=== PATIENT | female | born 1940 | race Caucasian/White ===

== ENCOUNTER 2021-04-01 05:47 | Day surgery (SDC) | payer MEDICARE ==
[2021-03-28 11:49] VITALS: BMI 19.4
[2021-04-01] MEDS ORDERED: ceFAZolin 1 GM in SODIUM CHLORIDE 0.9% 250 ML IRRIGATION PRN (05:53)
[2021-04-01] MEDS ORDERED: SODIUM CHLORIDE 0.9% 1,000 ML IV SCH ×2 (05:53)
[2021-04-01] MEDS ORDERED: SODIUM CHLORIDE 0.9% 1,000 ML IV ONE (06:10)
[2021-04-01 06:39] VITALS: RESP 16; TEMP 97.8
[2021-04-01 06:45] LABS: Basophils # (A) 0.1 k/uL (0-0.2); Basophils % (A) 1 %; Eosinophils # (A) 0.1 k/uL (0-0.7); Eosinophils % (A) 2 %; HGB 11.7 gm/dL (11.4-16.0); Lymphocytes % (A) 46 %; MCH 31.6 pg (25.0-35.0); MCHC 33.6 g/dL (31.0-37.0); MCV 94.1 fL (80.0-100.0); Mean Platelet Volume 7.3; Monocytes # (A) 0.3 k/uL (0-1.0); Monocytes % (A) 7 %; Neutrophils # (A) 1.7 k/uL (1.3-7.7); Neutrophils % (A) 40 %; Platelet Count 298 k/uL (150-450); RBC 3.72 m/uL (3.80-5.40); RDW 15.3 % (11.5-15.5); WBC 4.3 k/uL (3.8-10.6)
[2021-04-01 06:52] LABS: Prothrombin Time 19.3 sec (9.0-12.0)
[2021-04-01 06:57] LABS: African American GFR (CKD) >90 (>60 ml/min/1.73 sqM); Blood Urea Nitrogen 11 mg/dL (7-17); Calcium 9.2 mg/dL (8.4-10.2); Carbon Dioxide 26 mmol/L (22-30); Glucose 93 mg/dL (74-99); Non-African American GFR(CKD) 84 (>60 ml/min/1.73 sqM)
[2021-04-01 07:05] LABS: Anion Gap 8 mmol/L; Chloride 95 mmol/L (98-107); Potassium 4.4 mmol/L (3.5-5.1); Sodium 129 mmol/L (137-145)
[2021-04-01] MEDS ORDERED: LIDOCAINE 1% INJ 10MG/ML (20 ML MDV) ONE (08:14)
[2021-04-01] MEDS ORDERED: PROPOFOL 10 MG/ML 20 ML VIAL IV ONE (09:05)
[2021-04-01] MEDS ORDERED: MIDAZOLAM 2 MG/2 ML VIAL ONE (09:05)
[2021-04-01] MEDS ORDERED: fentaNYL (PF) 50 MCG/ML 2 ML AMP ONE (09:05)
[2021-04-01] MEDS ORDERED: IOPAMIDOL-370 50ML BTL INJ ONE (09:36)
[2021-04-01] MEDS ORDERED: LIDOCAINE 1% INJ 10MG/ML (20 ML MDV) SQ ONE ×2 (10:08→11:02)
[2021-04-01] MEDS ORDERED: VANCOMYCIN 1,000 MG in SODIUM CHLORIDE 0.9% 250 ML IVPB STA (10:45)
[2021-04-01] MEDS ORDERED: ACETAMINOPHEN TAB 325 MG TAB PO PRN (12:49)
[2021-04-01] MEDS ORDERED: ACETAMINOPHEN IV (For NPO) 1,000 MG in EMPTY BAG 1 BAG IVPB ONE (12:49)
--- NOTE | 2021-04-01 13:03 | P.EPPROC ---
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 Access was obtained at 2 sites at the level of the second rib successfully The sheath was placed for the LV lead However thereafter the guidewire would not pass down the SVC into the artery despite multiple attempts New RV lead not implanted Patient's RV pacing thresholds are elevated Very subtle bend in the RV lead noted in the subclavian area with the clavicle Patient had an anterior lateral vein and anterior vein The anterior lateral vein was tortuous and diminutive and the guidewire and keep dislodging as the vein was being subselected Therefore this vein was not selected for LV pacing The anterior vein was selected for LV pacing Access is obtained using a subselected sheath to address the tortuosity and this vein The LV lead was placed successfully In the proximal poles diaphragmatic stim ablation was noted In distal pole 1 and 2 there was no diaphragmatic stim ablation Excellent thresholds were noted Initially a Metronic screw-in lead was placed Subsequently this was removed and a [employer] medical researcher was placed This lead was successfully implanted more distally for greater stability and avoidance of diaphragmatic stimulation
--- NOTE | 2021-04-01 13:04 | P.EPPROC ---
- EP Procedure Note Electrophysiology Procedure Note: Successful biventricular pacemaker implanted with a new LV lead in the anterior vein LV only pacing programmed with a backup RV pacing Patient's left ventricular ejection fraction 45% She has been pacing around 70% times with her dual chamber pacemaker Dual-chamber pacemaker was at [facility] for normal battery depletion after 8 years
--- NOTE | 2021-04-01 14:24 | XR ---
EXAMINATION TYPE: XR chest 1V portable DATE OF EXAM: 04/01/2021 COMPARISON: Chest x-ray 01/28/2018 HISTORY: Lead placement check TECHNIQUE: Single frontal view of the chest is obtained. FINDINGS: There is been interval placement of a lead coursing along the expected coronary sinus dist ribution. Right atrial and ventricular leads are again noted. Heart has become enlarged. There is kacy e blunting of the costophrenic angles not seen on prior exam. Generators present in the left pectoral region, there are overlying leads. Patient is post median sternotomy. There is no evident pneumothor ax. Interstitium is increased. IMPRESSION: Interval generator change, placement of coronary sinus lead. Correlate for pulmonary ana ous hypertension and interstitial edema, may be small pleural effusions.
[2021-04-01 16:21] VITALS: BP 155/75; PULSE 64
--- NOTE | 2021-04-01 16:49 | P.EPPROC ---
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
--- NOTE | 2021-04-01 16:55 | P.PRLE ---
RE: Maria Alejandra Gates Dear Jad Bess underwent an upgrade to a biventricular pacemaker successfully. She has an ejection fraction 45% in the setting of an RV pacing percentage of almost 70%. He device was at [facility] A biventricular pacemaker with a new LV lead was successfully implanted Hopefully this is also in improvement in the LV function She will continue to see you and Dr. Ayala as before Thank you for entrusting me with the care of the patient Warm regards Sincerely Kelton Hines
--- NOTE | 2021-04-01 17:28 | CE ---
CARDIAC ELECTROPHYSIOLOGY REPORT Maria Alejandra Gates is an 81-year-old female who has a dual-chamber pacemaker which is at [facility]. She paces about 70% of the time in the right ventricle. Her ejection fraction is 45%. She was brought in for a generator change along with an upgrade to an LV lead for biventricular pacing. The patient was brought to the EP lab in a fasting state. Written informed consent was obtained prior to the procedure. The left shoulder area was prepped and draped as per protocol. Lidocaine 1% was used for local anesthesia. A 4 cm incision was made directly over the previous surgical site and carried down to the level of the generator. The generator was explanted. A partial capsulectomy was performed. Axillary vein access was obtained at two places at the level of the second rib. During the procedure we noticed that the RV thresholds were elevated and there was a very subtle kink in the RV lead under the clavicle. Thresholds were around 3.25 V at 0.5 millisecond. However, at the end of the procedure when we placed the generator back, the thresholds were actually back to normal. Impedance was in the mid 300s and stable. The LV sheath was placed. The coronary sinus catheter was placed in the coronary sinus. Coronary sinus venogram was performed and the anterior vein and a high anterior lateral vein were found. The tortuosity of the veins was noted. Both were accessed and tested. However, the anterolateral vein did not seem stable for lead positioning and even the wire would repeatedly pull out with the slightest forward pressure. Finally the anterior vein was chosen. In the proximal portions, diaphragmatic stimulation was noted, but in the distal portions the thresholds were excellent and there was no diaphragm stim. However, on account of the tortuosity, the Medtronic screw-in lead did not pass distally enough, and therefore a [employer] clinical trial leader was used instead. This vein had to be subselected similar to the anterolateral vein using a subselecting sheath, and then Advantage wire was placed in these veins and then the veins were cannulated. The LV lead used was a [employer] model #1458 Q, 75 cm in length. Pacing threshold 1.25 V at 0.4 millisecond, pacing impedance 703 ohms. At the end of the procedure, the P-waves were .1 mV, pacing impedance 323 ohms, pacing threshold 1.25 V at 0.4 milliseconds. The chronic RV lead showed an R-waves of 4.6 mV, pacing impedance of 380 ohms, pacing threshold 1.5 V at 0.4 millisecond. The new generator implanted was Medtronic Maya Quad, CRTP model number W4TR02, serial number [id number]. The leads and the generator were then placed in the subfascial pocket and the wound was closed in 3 layers and dressed per protocol. The generator was secured to the underlying muscle. The second access site was oversewn to prevent backbleeding. No further leads could be placed, since the SVC innominate junction was completely occluded by the leads. The patient tolerated the procedure well without any acute complications. He received IV antibiotics perioperatively. CHASTITY / VENKAT: [id number] /
[2021-04-01] MEDS ORDERED: POTASSIUM CHLORIDE ER 20 MEQ TAB.ER PO SCH (17:30)
[2021-04-01] MEDS ORDERED: METOPROLOL TARTRATE 50 MG TAB PO SCH (21:00)
[2021-04-01] MEDS ORDERED: NON FORMULARY DRUG (Simvastatin 20 MG Tab) PO SCH (21:00)
[2021-04-01] MEDS ORDERED: MEMANTINE 10 MG TAB PO SCH (21:00)
[2021-04-02] MEDS ORDERED: LOSARTAN 50 MG TAB PO SCH (09:00)
[2021-04-02] MEDS ORDERED: ESCITALOPRAM 5 MG TAB PO SCH (09:00)
[2021-04-02] MEDS ORDERED: FUROSEMIDE 20 MG TAB PO SCH (09:00)
[2021-04-02] MEDS ORDERED: DIGOXIN 125 MCG TAB PO SCH (12:00)
== END 2021-04-01 17:10 | disposition home or self-care (01) ==
LOC: CATHEP 05:47
PROVIDERS: ATTEND Internal Medicine Clinical Cardiac Electrophysiology
DX: Z45.010 Encounter for checking and testing of cardiac pacemaker pulse generator [battery] (principal); I48.91 Unspecified atrial fibrillation; F32.9 Major depressive disorder, single episode, unspecified; I34.0 Nonrheumatic mitral (valve) insufficiency; Z95.1 Presence of aortocoronary bypass graft; Z79.899 Other long term (current) drug therapy; Z95.0 Presence of cardiac pacemaker
CPT/HCPCS: 33225; 33229; 80048; 85025; 85610; 87635; 71045; C1769 ×5; C1892 ×3; C1730; C1898; C1900; C2621; J3370; J0690; J2001; J0131; Q9967